=== PATIENT | female | born 1980 | race Caucasian/White ===

== ENCOUNTER → 2020-06-25 07:45 | Outpatient (CLI) | payer OTHER, SELFPAY ==
--- NOTE | ~2020-06-25 | US_ITS ---
US right upper quadrant INDICATION: Elevated liver enzymes. Jaundice. PROCEDURE: Realtime right upper abdominal ultrasound. COMPARISON: No prior studies for comparison. FINDINGS: The pancreas is normal without focal mass or pancreatic ductal dilation. Liver echotexture is normal without focal mass or intrahepatic biliary dilatation. There is normal directional flow i n the portal vein. Gallbladder is surgically absent. Common bile duct measures 3 mm. IMPRESSION: 1: Unremarkable limited abdominal ultrasound. Reviewed, dictated and finalized at location B.
== END ==
PROVIDERS: Visit Provider Internal Medicine Endocrinology, Diabetes & Metabolism
DX: R17 Unspecified jaundice (principal)
CPT/HCPCS: 76705

== ENCOUNTER 2020-07-02 07:56 | Outpatient (RCR) | payer OTHER, SELFPAY ==
[2020-07-02 07:57] VITALS: BMI 20.9
[2020-07-02 07:59] VITALS: BMI 20.9
== END 2020-09-21 14:28 | disposition home or self-care (01) ==
LOC: ANHDMC 07:56
PROVIDERS: Visit Provider Internal Medicine Endocrinology, Diabetes & Metabolism
DX: E89.0 Postprocedural hypothyroidism (principal); Z71.3 Dietary counseling and surveillance
CPT/HCPCS: 97802

== ENCOUNTER 2020-10-01 14:01 | Outpatient (RCR) | payer OTHER, SELFPAY ==
[2020-10-01 14:12] VITALS: BMI 21.6
[2020-10-01 14:13] VITALS: BMI 21.6
== END 2020-12-21 14:38 | disposition home or self-care (01) ==
LOC: ANHDMC 14:01
PROVIDERS: Visit Provider Internal Medicine Endocrinology, Diabetes & Metabolism
DX: E89.0 Postprocedural hypothyroidism (principal); Z71.3 Dietary counseling and surveillance
CPT/HCPCS: 97803